=== PATIENT | female | born 1960 | race Caucasian/White ===

== ENCOUNTER 2021-09-06 22:49 | Observation (INO) | payer SELFPAY ==
[2021-09-06 22:55] VITALS: BMI 31.7
[2021-09-06] MEDS ORDERED: SODIUM CHLORIDE 1,000 ML IV ONE (23:55)
[2021-09-06] MEDS ORDERED: MAG HYDROX/AL HYDROX/SIMETH 30 ML UNIT-DOSE CUP PO ONE (23:56)
[2021-09-06] MEDS ORDERED: MECLIZINE HCL 25 MG TABLET (FP) PO ONE (23:58)
[2021-09-07] MEDS ORDERED: MECLIZINE HCL 25 MG TABLET (FP) ONE ×2 (00:29→10:22)
[2021-09-07] MEDS ORDERED: MAG HYDROX/AL HYDROX/SIMETH 30 ML UNIT-DOSE CUP ONE (00:29)
[2021-09-07 01:10] LABS: EOS % 2.9 % (0-4.5); HEMATOCRIT 38.6 % (32.4-45.2); HEMOGLOBIN 12.5 GM/dL (10.7-15.3); LYMPH % 41.8 % (8-40); MCH 21.4 pg (25.7-33.7); MCHC 32.3 g/dl (32.0-36.0); MEAN CELL VOLUME 66.1 fl (80-96); MEAN PLT VOLUME 7.9 fl (7.5-11.1); MONO % 4.7 % (3.8-10.2); NEUT % 49.6 % (42.8-82.8); PLATELET COUNT 330 10^3/uL (134-434); RBC 5.84 M/mm3 (3.60-5.2); RDW 17.4 % (11.6-15.6); WHITE BLOOD COUNT 6.7 K/mm3 (4.0-10.0)
[2021-09-07 01:28] LABS: CALCIUM 9.1 mg/dL (8.5-10.1)
[2021-09-07 01:29] LABS: ALBUMIN 3.8 g/dl (3.4-5.0); BLOOD UREA NITROGEN 16.2 mg/dL (7-18)
[2021-09-07 01:32] LABS: CREATININE 0.7 mg/dL (0.55-1.3)
[2021-09-07 01:33] LABS: BILIRUBIN,TOTAL 0.3 mg/dL (0.2-1); TOT PROT 8.2 g/dl (6.4-8.2)
[2021-09-07 04:43] LABS: EPI CELLS 2 /uL (0-25.1); HYALINE CASTS 0 /uL (0-3.1); URINE APPEARANCE CLEAR; URINE BACTERIA 1 /uL (0-1359); URINE BILIRUBIN NEGATIVE (NEGATIVE); URINE COLOR YELLOW; URINE GLUCOSE (UA) NEGATIVE (NEGATIVE); URINE KETONE NEGATIVE (NEGATIVE); URINE LEUK ESTERASE TRACE (NEGATIVE); URINE NITRITE NEGATIVE (NEGATIVE); URINE PROTEIN NEGATIVE (NEGATIVE); URINE RBC 5 /uL (0-23.9); URINE UROBILINOGEN 0.2 mg/dL (0.2-1.0); URINE WBC 7 /uL (0-25.8)
[2021-09-07 06:31] VITALS: TEMP 99
[2021-09-07 07:02] LABS: ANISOCYTOSIS 2+; MACROCYTOSIS 0
[2021-09-07] MEDS ORDERED: MECLIZINE HCL 25 MG TABLET (FP) PO PRN (10:01)
[2021-09-07 10:46] VITALS: BP 142/82; PULSE 86
== END 2021-09-07 13:49 | disposition home or self-care (01) ==
LOC: JER 22:49 → UNDOADMOB 09-07 05:59 → INTOOBSV 09-07 05:59 → JERBED 09-07 05:59
PROVIDERS: ADMIT Internal Medicine; ATTEND Internal Medicine
PROC: 3E0337Z Introduction of Electrolytic and Water Balance Substance into Peripheral Vein, Percutaneous Approach (ICD-10-PCS; principal; 2021-09-07)
DX: R42 Dizziness and giddiness (principal); Z88.8 Allergy status to other drugs, medicaments and biological substances
CPT/HCPCS: 36415; 70450-TC; 71046-TC-FY; 80053; 81003; 84484; 85025; 93005; 93010; 96360; 99285-25; C9803; G0378; U0003; U0005